=== PATIENT | female | born 1960 | race Caucasian/White ===

== ENCOUNTER 2018-08-30 05:44 | Day surgery (SDC) | payer OTHER ==
[2018-08-30] MEDS ORDERED: LR 1,000 ML IV ONE (06:10)
[2018-08-30] MEDS ORDERED: MIDAZOLAM 2 MG/2 ML VIAL IVP ONE (07:06)
[2018-08-30] MEDS ORDERED: MIDAZOLAM 2 MG/2 ML VIAL ONE (07:06)
[2018-08-30] MEDS ORDERED: fentaNYL 100 MCG/2 ML INJ ONE ×3 (07:20→09:56)
[2018-08-30] MEDS ORDERED: PROPOFOL 200 MG/20 ML VIAL ONE (07:20)
[2018-08-30] MEDS ORDERED: PROPOFOL/EMULSION 500 MG/50 ML BOTTLE IV ONE (07:20)
[2018-08-30] MEDS ORDERED: BUPIVACAINE 0.5% 30 ML SDV ONE (07:39)
[2018-08-30] MEDS ORDERED: THROMBIN (BOVINE) 5,000 UNIT VIAL TP ONE (07:39)
[2018-08-30] MEDS ORDERED: ACETAMINOPHEN 500 MG TAB PO PRN (07:43)
[2018-08-30] MEDS ORDERED: ALBUTEROL 3 ML DEYVIAL IH PRN (07:43)
[2018-08-30] MEDS ORDERED: HYDROmorphONE/DILAUDID 1 MG/ML INJ IVP PRN (07:43)
[2018-08-30] MEDS ORDERED: PHENYLEPHRINE HCL 100 MCG/ML SYR IVP PRN (07:43)
[2018-08-30] MEDS ORDERED: ONDANSETRON 4 MG/2 ML VIAL IVP PRN (07:43)
[2018-08-30] MEDS ORDERED: PROMETHAZINE HCL 25 MG/ML INJ IVP PRN (07:43)
[2018-08-30] MEDS ORDERED: oxyCODONE IR 5 MG TAB PO PRN (07:43)
[2018-08-30] MEDS ORDERED: LABETALOL HCL 5 MG/ML 20 ML MDV IVP PRN (07:43)
[2018-08-30] MEDS ORDERED: MEPERIDINE 25 MG/0.5 ML AMP IVP PRN (07:43)
[2018-08-30] MEDS ORDERED: DIAZEPAM 10 MG/2 ML SYR IVP PRN (07:43)
[2018-08-30] MEDS ORDERED: NALOXONE HCL 0.4 MG/ML INJ IVP PRN (07:43)
[2018-08-30] MEDS ORDERED: LR 500 ML IV PRN (07:43)
[2018-08-30] MEDS ORDERED: DEXAMETHASONE 4 MG/ML VIAL IVP PRN (07:43)
[2018-08-30] MEDS ORDERED: METOCLOPRAMIDE 10 MG/2 ML VIAL IVP PRN (07:43)
--- NOTE | 2018-08-30 07:43 | PDANEPAE ---
ANE Past Medical History - Cardiovascular History Hx Hypertension: No Hx Arrhythmias: No Hx Chest Pain: No Hx Coronary Artery / Peripheral Vascular Disease: No Hx CHF / Valvular Disease: No Hx Palpitations: No Cardiovascular History Comment: murmur 20 years ago, stress test 20 yrs ago echocardiogram 20 yrs ago - Pulmonary History Hx COPD: No Hx Asthma/Reactive Airway Disease: No Hx Recent Upper Respiratory Infection: No Hx Oxygen in Use at Home: No Hx Sleep Apnea: No Sleep Apnea Screening Result - Last Documented: Negative - Neurologic History Hx Cerebrovascular Accident: No Hx Seizures: No Hx Dementia: No - Endocrine History Hx Diabetes: Yes Endocrine History Comment: hypothyroid, david's disease, - Renal History Hx Renal Disorders: Yes Renal History Comment: nephrotic syndrome resolved after second - Liver History Hx Hepatic Disorders: Yes Hepatic History Comment: hep a 40 yrs ago - Neurological & Psychiatric Hx Hx Neurological and Psychiatric Disorders: No - Cancer History Hx Cancer: No - Congenital Disorder History Hx Congenital Disorders: No - GI History Hx Gastrointestinal Disorders: No - Other Health History Other Health History: anemia due to heavy menstrua bleeding - Chronic Pain History Chronic Pain: No - Surgical History Prior Surgeries: tonsils age 5, breast implants 35 yrs ago ANE Review of Systems Review of systems is: negative Review of Systems: - Exercise capacity Exercise capacity: >=4 METS METS (RN): 6 METS ANE Patient History - Allergies Allergies/Adverse Reactions: No Known Allergies Allergy (Unverified 08/24/18 10:04) - Home Medications Home medications: home medication list seen and reviewed Home Medications: Cytomel 08/24/18 [Last Taken Unknown] Herbals/Supplements -Info Only 08/24/18 [Last Taken Unknown] Levothyroxine 08/24/18 [Last Taken Unknown] [employer] Thyroid 08/24/18 [Last Taken Unknown] Progesterone 08/24/18 [Last Taken Unknown] Vivelle-Dot 0.05MG (*) 08/24/18 [Last Taken Unknown] - NPO status NPO Status: no food or drink >8 hours NPO Since - Liquids (Date): 08/29/18 NPO Since - Liquids (Time): 21:00 NPO Since - Solids (Date): 08/29/18 NPO Since - Solids (Time): 21:00 - Anes Hx Anes Hx: no prior problems - Smoking Hx Smoking Status: Former smoker - Family Anes Hx Family Hx Anesthesia Complications: none ANE Labs/Vital Signs - Vital Signs Vital Signs: reviewed preoperatively; see RN documention for details Blood Pressure: 114/75 Heart Rate: 70 Respiratory Rate: 23 O2 Sat (%): 98 Height: 170.18 cm Weight: 68.039 kg ANE Physical Exam - Airway Neck exam: FROM Mallampati Score: Class 2 Mouth exam: normal dental/mouth exam - Pulmonary Pulmonary: no respiratory distress - Cardiovascular Cardiovascular: regular rate and rhythym - ASA Status ASA Status: II ANE Anesthesia Plan Anesthesia Plan: GA with mask
[2018-08-30] MEDS ORDERED: ONDANSETRON 4 MG/2 ML VIAL ONE (07:50)
[2018-08-30] MEDS ORDERED: DEXAMETHASONE 4 MG/ML VIAL ONE (07:50)
[2018-08-30] MEDS ORDERED: KETOROLAC 30 MG/1 ML SDV ONE (08:04)
[2018-08-30] MEDS: fentaNYL 100 MCG/2 ML INJ IVP PRN ×3 (08:34→09:58)
[2018-08-30] MEDS ORDERED: DIAZEPAM 10 MG/2 ML SYR ONE (08:43)
[2018-08-30] MEDS ORDERED: ACETAMINOPHEN 500 MG TAB ONE (09:24)
--- NOTE | 2018-08-30 09:45 | POSTANESTH ---
Post Anesthetic Evaluation Cardiovascular Status: Normal, Stable Respiratory Status: Normal, Stable Level of Consciousness/Mental Status: Can Participate in Eval Pain Control: Adequate, Prn Tx Ordered Nausea/Vomiting Control: Adequate, Prn Tx Ordered Complications Possibly Related to Anesthesia: None Noted
[2018-08-30 11:03] VITALS: BP 101/71
--- NOTE | 2018-08-30 11:22 | GOP ---
[f rep st] OPERATIVE REPORT DATE OF OPERATION: 08/30/2018 SURGEON: Anne Egan MD ANESTHESIA: General with LMA. ANESTHESIOLOGIST: Eros Britton MD PREOPERATIVE DIAGNOSIS: 1. Dysfunctional uterine bleeding. 2. Submucosal fibroids and polyps. POSTOPERATIVE DIAGNOSIS: 1. Dysfunctional uterine bleeding. 2. Submucosal fibroids and polyps. PROCEDURE PERFORMED: Hysteroscopic polypectomy and myomectomy and NovaSure endometrial ablation. FINDINGS: There were 3 distinct posterior wall partially embedded submucosal fibroids, each measurin g about 1-1/2 cm to 2 cm across. Also on the posterior wall was a pedunculated polyp, and then a 2nd submucosal fibroid that was completely submucosal. Normal tubal ostia. ESTIMATED BLOOD LOSS: Minimal. INDICATIONS: Patient is a 58-year-old who is on hormone replacement therapy through [facility]. Myke sommers has had irregular problematic bleeding over the last year, so an ultrasound sonohysterogram showed several submucosal filling defects, most likely fibroids. The patient has had an endometrial biopsy that was negative, and patient desires definitive treatment. DESCRIPTION OF PROCEDURE: With informed consent signed, patient taken to the operating room, placed under general anesthesia without complication. Bladder previously emptied. Patient placed in dorsal lithotomy position, prepped and draped in the usual sterile fashion. Speculum placed and tenaculum placed on the cervix, and cervix sounded to 7-1/2 cm. Next, the cervix was dilated to 9-1/2 5 mm and hysteroscope placed using normal saline as the filling medium. Findings noted as above. The [employer] morcellator placed through the hysteroscope, and morcellation done of all the sub mucosal tissue until the uterine lining was completely flat with the myometrium. Once it was felt th at all the endometrial tissue had been removed, the hysteroscope was removed, and NovaSure endometria l ablation device placed. The uterine length was 6.5 and width was 4.5. Integrity test passed, and burn time was approximately 50 seconds. The NovaSure removed. There was slight bleeding from the ce rvix, which was made hemostatic with tamponade. Once the procedure was completed, the patient placed in supine position, awakened in the operating room, and taken to the recovery room in stable conditi on, tolerating the procedure well. COMPLICATIONS: None. Copy requested to: [facility] /[id number]/MODL
== END 2018-08-30 11:00 | disposition home or self-care (01) ==
LOC: FSGY 05:44
PROVIDERS: ATTEND Obstetrics & Gynecology Gynecology
PROC: 0UDB8ZZ Extraction of Endometrium, Via Natural or Artificial Opening Endoscopic (ICD-10-PCS; principal; 2018-08-30 07:15)
PROC: 0UB98ZZ Excision of Uterus, Via Natural or Artificial Opening Endoscopic (ICD-10-PCS; principal; 2018-08-30 07:15)
DX: N93.8 Other specified abnormal uterine and vaginal bleeding (principal); D25.0 Submucous leiomyoma of uterus; N84.0 Polyp of corpus uteri
CPT/HCPCS: C1782; J1100; J1885; J2250; J2405; J2704; J3010; J3360